=== PATIENT | female | born 1975 | race Two or more races ===

== ENCOUNTER 2016-10-01 15:10 | Emergency (ER) | payer SELFPAY ==
[~2016-10-01] VITALS: Ht 175.3 cm; Wt 63.5 kg
[2016-10-01 15:59] VITALS: BP 124/75
[2016-10-01] MEDS ORDERED: IV NS 0.9% 500 ML IV ONE (16:11)
[2016-10-01] MEDS ORDERED: IV SET PRIMARY PUMP SET 1 EA INFUS.SET MC ONE (16:11)
[2016-10-01] MEDS ORDERED: LORAZEPAM INJ 2 MG/ML VIAL ONE (16:12)
[2016-10-01 16:14] LABS: BASOPHILS % (AUTO) 0.3 % (0.0-2.0); DIFF TOTAL % 100 %; EOSINOPHILS % (AUTO) 0.4 % (0.0-6.0); HEMATOCRIT 37 % (33-45); HEMOGLOBIN 12.5 g/dL (11.5-14.8); LYMPHOCYTES # (AUTO) 1.8 /CMM (0.8-4.8); MEAN CORPUSCULAR HEMOGLOBIN 31 PG (26.0-33.0); MEAN CORPUSCULAR HGB CONC 34 g/dl (31.0-36.0); MEAN CORPUSCULAR VOLUME 90 fL (82-100); MONOCYTES # (AUTO) 0.5 /CMM (0.1-1.30); MONOCYTES % (AUTO) 6.5 % (2.0-12.0); NEUTROPHILS # (AUTO) 5.7 /CMM (1.8-8.9); NEUTROPHILS % (AUTO) 69.8 % (43.0-81.0); PLATELET COUNT (AUTO) 344 /CMM (150-450); RED BLOOD CELL COUNT(AUTO) 4.09 MIL/uL (4.0-5.2)
[2016-10-01 16:23] LABS: CALCIUM, SERUM 8.6 mg/dL (8.5-10.1); CREATININE 0.8 mg/dL (0.6-1.3); POTASSIUM 3.5 mmol/L (3.5-5.1)
[2016-10-01] MEDS ORDERED: IV NS 0.9% 500 ML BAG IV ONE (16:30)
[2016-10-01] MEDS ORDERED: LORAZEPAM INJ 2 MG/ML VIAL IV ONE (16:30)
== END 2016-10-01 18:49 | disposition home or self-care (01) ==
LOC: ER 15:13
DX: F41.0 Panic disorder [episodic paroxysmal anxiety] (principal)
CPT/HCPCS: 36415; 70450; 71010; 80048; 84703; 85025; 93005; 96374; 99285; A4606; J2060; J7040; Z7610